=== PATIENT | female | born 1990 ===

== ENCOUNTER → 2019-09-25 | Outpatient (CLI) | payer MEDICAID ==
[2019-09-25 17:54] LABS: EOS # 0.2 (0.04-0.40); EOS % 1.9 % (1.0-5.0); HEMATOCRIT 38.8 % (37.0-47.0); HEMOGLOBIN 12.2 g/dL (12.5-16.0); LYMPH# 2.2 (1.50-4.00); MEAN CELL VOLUME 90 fl (78-100); MEAN CORPUSCULAR HEMOGLOBIN 28 pg (27-31); MEAN CORPUSCULAR HGB CONC 31 g/dL (33-37); MEAN PLATELET VOLUME 11.5 fl (7.4-10.4); MONO # 0.6 (0.20-0.80); NEU # 7.2 (1.40-6.50); PLATELET COUNT 236 K/mm3 (130-400); RED BLOOD COUNT 4.31 M/mm3 (4.10-5.30); RED CELL DISTRIBUTION WIDTH 13.5 % (11.5-14.5); WHITE BLOOD COUNT 10.2 K/mm3 (4.8-10.8)
[2019-09-25 17:57] LABS: ALBUMIN 3.8 g/dL (3.5-5.0)
[2019-09-25 18:00] LABS: TOTAL PROTEIN 7.3 g/dL (6.4-8.3)
[2019-09-25 18:02] LABS: TOTAL BILIRUBIN 0.2 mg/dL (0.2-1.2)
== END ==
LOC: LAB 17:30
PROVIDERS: Family Medicine
DX: Z00.00 Encounter for general adult medical examination without abnormal findings (principal); E78.5 Hyperlipidemia, unspecified; E55.9 Vitamin D deficiency, unspecified; R73.9 Hyperglycemia, unspecified

== ENCOUNTER → 2019-10-27 | Outpatient (CLI) | payer MEDICAID ==
[2019-10-28 18:29] LABS: T3 TOTAL 118 ng/dL (58-159)
== END ==
LOC: LAB 17:17
PROVIDERS: Family Medicine
DX: R53.83 Other fatigue (principal)

== ENCOUNTER → 2020-05-23 | Outpatient (CLI) | payer MEDICAID | LOC: RAD 13:30 | DX: U07.1 COVID-19 (principal) ==

== ENCOUNTER → 2021-02-25 | Outpatient (CLI) | payer MEDICAID ==
[2021-02-25 17:12] LABS: BASO # 0.04 K/mm3 (0.02-0.10); EOS # 0.32 K/mm3 (0.04-0.40); EOS % 3.7 % (1.0-5.0); HEMOGLOBIN 11.9 g/dL (12.5-16.0); LYMPH# 2.17 K/mm3 (1.50-4.00); MEAN CELL VOLUME 90 fl (78-100); MEAN CORPUSCULAR HEMOGLOBIN 28 pg (27-31); MEAN CORPUSCULAR HGB CONC 31 g/dL (33-37); MEAN PLATELET VOLUME 11.5 fl (7.4-10.4); MONO # 0.49 K/mm3 (0.20-0.80); NEU # 5.55 K/mm3 (1.40-6.50); PLATELET COUNT 207 K/mm3 (130-400); RED BLOOD COUNT 4.21 M/mm3 (4.10-5.30); RED CELL DISTRIBUTION WIDTH 12.9 % (11.5-14.5); WHITE BLOOD COUNT 8.6 K/mm3 (4.8-10.8)
[2021-02-25 17:24] LABS: TOTAL PROTEIN 7.6 g/dL (6.4-8.3)
[2021-02-25 17:26] LABS: TOTAL BILIRUBIN 0.2 mg/dL (0.2-1.2)
== END ==
LOC: LAB 17:00
PROVIDERS: Family Medicine
DX: Z00.00 Encounter for general adult medical examination without abnormal findings (principal); E78.5 Hyperlipidemia, unspecified